=== PATIENT | female | born 1995 | race Caucasian/White ===

== ENCOUNTER → 2018-03-04 | Outpatient (CLI) | payer OTHER | LOC: FIMAGING 18:01 | PROVIDERS: ATTEND Psychiatry & Neurology Neurology | DX: R40.20 Unspecified coma (principal); R56.9 Unspecified convulsions ==

== ENCOUNTER → 2018-03-08 | Outpatient (CLI) | payer OTHER ==
--- NOTE | 2018-03-11 14:08 | CPEEG ---
FOUR-HOUR VIDEO EEG DATE OF STUDY: 03/08/2018 INTERPRETATION: This 4-hour video EEG recording is essentially normal. There were no definite poten tially epileptogenic abnormalities present during the awake or sleep studies. The patient did not hamilton ve any clinical events during the video EEG monitoring session. REPORT: This 4-hour video EEG contains 10 Hz alpha activity to the posterior head regions. There wa s no abnormal activation at rest, during photic stimulation or hyperventilation. The patient became drowsy and fell into sustained sleep during the study. During sleep, there were occasional high-ampl itude, sharply contoured waveforms embedded within normal sleep activity. These are likely of no cli nical significance. There was no definite abnormal epileptiform activation during drowsiness, sleep, or during times of arousal. The patient did not have any clinical events during the video EEG monitoring session. /[id number]/[id number]
== END ==
LOC: FCPNEURO 07:48
PROVIDERS: ATTEND Psychiatry & Neurology Neurology
DX: R56.9 Unspecified convulsions (principal)